=== PATIENT | female | born 1990 | race Hispanic/Latino ===

== ENCOUNTER 2017-09-10 21:42 | Emergency (ER) | payer MEDICAID ==
[2017-09-11 00:47] LABS: Hematocrit 38.4 % (30.3-42.9); Hemoglobin 13.4 gm/dl (10.1-14.3); Mean Corpuscular HGB Conc 35 % (30-34); Mean Corpuscular Hemoglobin 32 pg (28-32); Mean Corpuscular Volume 91 fl (79-97); Platelet Count 189 K/mm3 (140-440); Red Cell Distribution Width 12.9 % (13.2-15.2)
[2017-09-11 01:35] LABS: BUN/Creatinine Ratio 15; Blood Urea Nitrogen 12 mg/dL (7-17); Calcium 9.2 mg/dL (8.4-10.2); Hemolysis Index 17
--- NOTE | 2017-09-11 01:40 | Emergency Department Report ---
ED Medical Clearance HPI - General Chief complaint: Medical Clearance Stated complaint: MEDICAL CLEARANCE Time Seen by Provider: 09/10/17 23:30 Source: EMS Mode of arrival: Stretcher - History of Present Illness Initial comments: Patient was sent here from the [facility] because she's been having homicidal ideations and aggressive behavior and threatening staff at the halfway. She was sent here for medical clearance. Patient however tells me that she's got pain on the upper part of her right thigh of moderate intensity and nonradiating with no aggravating factor. She is presently on a 1013 from the halfway Complaint: medical clearance request -: Gradual Traumatic Symptoms: denies traumatic injury Allergies/Adverse reactions: Allergies Allergy/AdvReac Type Severity Reaction Status Date / Time No Known Allergies Allergy Verified 01/03/15 20:26 ED Review of Systems ROS: Stated complaint: MEDICAL CLEARANCE Other details as noted in HPI Comment: All other systems reviewed and negative ED Past Medical Hx - Past Medical History Previous Medical History?: Yes Hx GERD: Yes Hx Psychiatric Treatment: Yes (bipolar) Additional medical history: IBS, mental retardation - Surgical History Past Surgical History?: No Additional Surgical History: hysterctomy / right hand - Social History Smoking Status: Never Smoker Substance Use Type: None ED Physical Exam - General Limitations: No Limitations General appearance: alert, in no apparent distress - Head Head exam: Present: atraumatic, normocephalic - Eye Eye exam: Present: normal appearance - ENT ENT exam: Present: mucous membranes moist - Neck Neck exam: Present: normal inspection - Respiratory Respiratory exam: Present: normal lung sounds bilaterally. Absent: respiratory distress - Cardiovascular Cardiovascular Exam: Present: regular rate, normal rhythm. Absent: systolic murmur, diastolic murmur, rubs, gallop - GI/Abdominal GI/Abdominal exam: Present: soft, normal bowel sounds. Absent: tenderness - Rectal Rectal exam: Present: deferred - Extremities Exam Extremities exam: Present: normal inspection, tenderness (tenderness to palpation of the anterior aspect of the right upper thigh) - Back Exam Back exam: Present: normal inspection - Neurological Exam Neurological exam: Present: alert, oriented X3 - Skin Skin exam: Present: warm, dry, intact, normal color. Absent: rash ED Course Vital Signs 09/10/17 09/10/17 23:38 23:41 Temperature 98 F Pulse Rate 56 L Respiratory 18 18 Rate Blood Pressure 122/77 [Left] O2 Sat by Pulse 100 Oximetry ED Medical Decision Making - Lab Data Result diagrams: 09/11/17 00:26 09/11/17 00:26 - Medical Decision Making I reviewed the patient's labs and the patient is medically cleared. ED Disposition Clinical Impression: Medical clearance for psychiatric admission, Muscle strain Disposition: [id number] PSY HOSP/PSY UNIT Is pt being admited?: No Does the pt Need Aspirin: No Condition: Stable Instructions: Muscle Strain (ED) Additional Instructions: Take Tylenol or Motrin as needed for the pain in the right thigh Referrals: PARISH GALLEGOS MD [Primary Care Provider] - 3-5 Days Time of Disposition: 03:27 Print Language: BAHRAINI
[2017-09-11 02:43] LABS: Bacteria,Urine 1+ /HPF (Negative); Bilirubin,Urine NEG (Negative); Blood,Urine NEG (Negative); Color,Urine Yellow (Yellow); Protein,Urine <15 mg/dL mg/dL (Negative); RBC,Urine < 1.0 /HPF (0.0-6.0); Urobilinogen,Urine < 2.0 mg/dL (<2.0)
[2017-09-11 02:45] LABS: HCG Qualitative,Urine Negative (Negative)
[2017-09-11 02:46] LABS: Amphetamine Screen,Urine PRESUMPTIVE NEGATIVE; Benzodiazepines Screen,Urine PRESUMPTIVE NEGATIVE; Cannabinoid Screen,Urine PRESUMPTIVE NEGATIVE; Cocaine Screen,Urine PRESUMPTIVE NEGATIVE; Methadone Screen,Urine PRESUMPTIVE NEGATIVE; Opiate Screen,Urine PRESUMPTIVE NEGATIVE
[2017-09-11 02:47] LABS: Basophils % (Manual) 0 % (0.0-1.8); Eosinophils % (Manual) 0 % (0.0-4.3); Platelet Estimate Consistent w Auto; RBC Morphology Normal; Total Cells Counted 100
[2017-09-11 04:07] VITALS: BP 121/75
== END 2017-09-11 04:09 ==
LOC: ED 21:42
DX: F23 Brief psychotic disorder (principal); F31.9 Bipolar disorder, unspecified; K21.9 Gastro-esophageal reflux disease without esophagitis; Z90.710 Acquired absence of both cervix and uterus
CPT/HCPCS: 36415; 80048; 80307; 81001; 81025; 85007; 85025; 99283; G0480; 80320